=== PATIENT | male | born 1980 | race African-American/Black ===

== ENCOUNTER 2017-04-29 10:57 | Emergency (ER) | payer SELFPAY ==
[~2017-04-29] VITALS: Ht 170.2 cm; Wt 72.0 kg
[2017-04-29 11:17] VITALS: Ht 170.2 cm; Wt 72.0 kg
--- NOTE | 2017-04-29 12:17 | PSY ---
Date/Time of Note Date/Time of Note DATE: 04/29/17 TIME: 12:11 Psychiatric Subjective Eval Consent Pt consented to telemedicine: Yes Subjective Evaluation Patient location: emergency Chief Complaint: BIB [facility] , WAS KNOCKING AT DOORS , ADMITS SMOKING WEED History of present illness 36 yo AAM BIB [employer] due to bizarre bhx: pt was confused, was knocking on the doors. Pt admitted to smoking weed. Labs not done yet. Pt reprots hx Bipoalr d/o and prior hospitalizations. He is labile, with elevated mood and tangential statements. He is paranoid: "I need to call my parents to make sure thye are ok.. I jsut went for a joyride with my homies.. I can live with my parents if I want to" Denies to me SI or HI, denies AH or Vh but is paranoid. Did not make any grandiose statements; admits to feeling "like a nervous breakdown lately". Does nto elaborate. Admits ot problems with insomnia lately. 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 Psychiatric Objective Eval Physical Examination: Sleep: Insomnia Mental Status Examination: Appearance: Groomed Eye Contact: Good Psychomotor Activity: Normal Behavior: Friendly Speech: Pressured AFFECT: Libile Mood: Elevated Though Process: Tangential Thought Content: Delusions Suicidal: No Homicidal: No On 72 hour hold: No Orientation: x4 Cognition: Alert Insight: Impared Judgement: Impared Attention Span: Distractible Assessment and Plan Assessment/Diagnosis [place] I: BIPOLAR I MANIC VS UNSPECIFIED PSYCHOSIS [place] II: DEFERED [place] III: NAD [place] IV: MODERATE [place] V: GAF 25 Recommendation/Plan Medication Management CHECK VPA LEVEL; DEPAKTOE 5000 MG PO BID OR VERIFY PT'S CURRENT DOSE VIA HIS OUTPT PHARMACY; PLEASE ADMINSITER ZYPREXA 5 MG PO BID Psychotherapy DEFER TO INPT Follow-up/Disposition 5150 FOR GD; TRANSFER TO INPT PSYCH. 5150 Recommendation: Place Hold IEK BARKSDALE MD Apr 29, 2017 12:17
[2017-04-29] MEDS ORDERED: OLAN2.5T4 PO ×2 (12:48→18:02)
[2017-04-29] MEDS ORDERED: OLANZAPINE 5 MG TAB PO ONE (13:00)
[2017-04-29 14:04] LABS: CANNABINOIDS Positive (NEGATIVE)
[2017-04-29 14:07] LABS: BARBITURATES Negative (NEGATIVE); BENZODIAZEPINES Negative (NEGATIVE); COCAINE Negative (NEGATIVE); OPIATES Negative (NEGATIVE)
[2017-04-29 14:43] LABS: ADD UMIC YES; UR ASCORBIC ACID NEGATIVE (NEGATIVE); UR BACTERIA FEW /HPF (NONE SEEN); UR BILIRUBIN (Dip) NEGATIVE (NEGATIVE); UR BLOOD (Dip) NEGATIVE (NEGATIVE); UR CLARITY SLIGHTLY CLOUDY (CLEAR); UR COLOR YELLOW (YELLOW); UR GLUCOSE (Dip) 1+ mg/dL (NEGATIVE); UR KETONES (Dip) TRACE mg/dL (NEGATIVE); UR LEUKOCYTE ESTERASE (Dip) NEGATIVE Leu/ul (NEGATIVE); UR MUCUS FEW /HPF (NONE SEEN); UR NITRITE (Dip) NEGATIVE (NEGATIVE); UR RBC 0 /HPF (0-5); UR SPECIFIC GRAVITY (Dip) 1.027 (1.003-1.030); UR TOTAL PROTEIN (Dip) 1+ mg/dl (NEGATIVE); UR UROBILINOGEN (Dip) NEGATIVE (NEGATIVE)
[2017-04-29] MEDS ORDERED: AZITHROMYCIN 250 MG TAB PO ONE (15:30)
[2017-04-29] MEDS ORDERED: LIDOCAINE 1% (MDV) 20 ML INJ SC ONE (15:30)
[2017-04-29] MEDS ORDERED: CEFTRIAXONE 250 MG INJ IM ONE (15:30)
--- NOTE | 2017-04-29 17:20 | ERA ---
ER Documentation Chief Complaint Date/Time DATE: 04/29/17 TIME: 17:18 Chief Complaint BIB [facility] , WAS KNOCKING AT DOORS , ADMITS SMOKING WEED HPI This is a 36-year-old male who presents to the emergency room for evaluation of altered status and agitation. According to [facility] this patient was walking around neighborhoods and was knocking on people's doors. Patient does state he has a psychiatric history but cannot tell me what history he has. The patient does state he smokes marijuana but denies any other drug use. Patient is refusing to answer any other questions at this time. ROS All systems reviewed and are negative except as per history of present illness. Medications Home Meds Reported Medications Olanzapine* (Zyprexa*) 2.5 Mg Tablet, 7.5 MG PO DAILY, #30 TAB 04/29/17 Allergies Allergies: Coded Allergies: No Known Allergy (Unverified , 04/29/17) PMhx/Soc History of Surgery: No Anesthesia Reaction: No Hx Neurological Disorder: No Hx Respiratory Disorders: No Hx Cardiac Disorders: No Hx Psychiatric Problems: Yes (BIPOLAR DISORDER ) Hx Miscellaneous Medical Probl: No Hx Alcohol Use: Yes Hx Substance Use: Yes (WEED) Hx Tobacco Use: Yes Smoking Status: Current every day smoker Physical Exam Vitals Vital Signs Date Time Temp Pulse Resp B/P Pulse Ox O2 Delivery O2 Flow Rate FiO2 04/29/17 11:17 98.1 92 18 136/89 99 Physical Exam INITIAL VITAL SIGNS: Reviewed by me GENERAL: The patient is well developed and appropriate for usual state of health in no apparent distress HEENT: Pupils equal, round, and reactive to light. EOMI. There is no scleral icterus. NECK: C-spine is soft and supple, there is no meningismus. There is no cervical lymphadenopathy. LUNGS: Clear to auscultation bilaterally. There are no rales, wheezes or rhonchi. HEART: Regular rate and rhythm, no murmurs, clicks, rubs or gallops. ABDOMEN: Soft, non-tender, non-distended. There are bowel sounds in all four quadrants. No rebound or guarding. EXTREMITIES: There is no peripheral cyanosis or edema. No focal swelling or erythema. NEUROLOGICAL: The patient moves all four extremities with 5/5 strength. Cranial nerves II - XII are intact. Normal gait. Alert and oriented SKIN: There is no apparent rash or petechiae. HEME/LYMPHATIC: There is no evidence of excessive bruising or lymphedema. PSYCHIATRIC: The patient does not appear anxious or depressed. Does appear mildly agitated, has tangential thought Results 24 hrs Laboratory Tests Test 04/29/17 13:20 Urine Color YELLOW Urine Clarity SLIGHTLY CLOUDY Urine pH 5.0 Urine Specific [place] 1.027 Urine Ketones TRACEmg/dL Urine Nitrite NEGATIVEmg/dL Urine Bilirubin NEGATIVEmg/dL Urine Urobilinogen NEGATIVEmg/dL Urine Leukocyte Esterase NEGATIVELeu/ul Urine Microscopic RBC 0/HPF Urine Microscopic WBC 1/HPF Urine Bacteria FEW/HPF Urine Mucus FEW/HPF Urine Hemoglobin NEGATIVEmg/dL Urine Glucose 1+mg/dL Urine Total Protein 1+mg/dl Urine Opiates Screen Negative Urine Barbiturates Negative Urine Amphetamines Screen Negative Urine Benzodiazepines Screen Negative Urine Cocaine Screen Negative Urine Cannabinoids Positive Current Medications Medications (Trade) Dose Ordered Sig/Rosmery Route PRN Reason Start Time Stop Time Status Last Admin Dose Admin Olanzapine (Zyprexa) 5 mg ONCE ONCE PO 04/29/17 13:00 04/29/17 13:04 DC 04/29/17 15:27 Ceftriaxone Sodium (Rocephin) 250 mg ONCE ONCE IM 04/29/17 15:30 04/29/17 15:31 DC 04/29/17 15:28 Azithromycin (Zithromax) 1,000 mg ONCE ONCE PO 04/29/17 15:30 04/29/17 15:31 DC 04/29/17 15:27 Lidocaine (Xylocaine 1% (Mdv) 20 ml) 20 ml ONCE ONCE SC 04/29/17 15:30 04/29/17 15:31 DC Procedures/MDM This 36-year-old male presents to the ER for evaluation of agitated behavior and psychiatric behavior. When I evaluated this patient he did have tangential thought. The patient does admit to previous psychiatric history however he is refusing to answer anymore questions and is not time with other psychiatric conditions he has. The patient is refusing blood work. He does state that this of painful urination sometimes. He denies any urethral discharge. Urinalysis was obtained which does show mild bacteria. The patient was treated for GC chlamydia in the emergency room. The patient's mother did call and stated this patient has numerous psychiatric issues. Tele-psych physician did recommend this patient be placed on a hold and PMR T did also recommend this patient be placed on a hold at this time. The patient will be transferred to a facility when one is available for him. Patient presents with symptomatology consistent with the decompensation of previously diagnosed psychiatric disease. Based on history, physical exam and appropriate lab tests, I appreciate no evidence of significant life-threatening injury or illness that includes a psychiatric hospitalization. Patient is thus "medically clear" for psychiatric admission. In regards to the psychiatric complaints, this patient has clear evidence of high risk psychiatric symptoms with significant risk for decompensation, thus requiring admission to the hospital for stabilization. Departure Diagnosis: Primary Impression: Acute psychosis Additional Impression: Drug use Condition: Stable ТАТЬЯНА CHACON DO Apr 29, 2017 17:20
[2017-04-29] MEDS ORDERED: DIVA-16 PO (17:49)
[2017-04-29] MEDS ORDERED: TOPI-25 PO (17:50)
[2017-04-29] MEDS ORDERED: TRAZ50TA18 PO (17:50)
[2017-04-29 18:43] VITALS: BP 156/91; PULSE 99; RESP 16; TEMP 98.1
== END 2017-04-29 20:09 ==
LOC: E/R 10:57
DX: F23 Brief psychotic disorder (principal); F12.90 Cannabis use, unspecified, uncomplicated; F17.210 Nicotine dependence, cigarettes, uncomplicated
CPT/HCPCS: 80307; 81001; 96372; 99285; J0696